=== PATIENT | female | born 1965 | race Caucasian/White ===

== ENCOUNTER 2017-06-27 18:04 | Emergency (ER) | payer MEDICAID ==
[~2017-06-27] VITALS: Ht 165.1 cm; Wt 104.0 kg
[2017-06-27 18:45] LABS: HEMATOCRIT 43.7 % (34.6-47.8); HEMOGLOBIN 14.4 g/dL (11.7-16.4); WHITE BLOOD COUNT 13.5 x10^3/uL (3.4-10)
[2017-06-27 18:56] LABS: BLOOD UREA NITROGEN 9 mg/dL (7-18)
[2017-06-27] MEDS ORDERED: MORPHINE SULFATE 4 MG/ML, 1ML IVPush PRN (19:00)
[2017-06-27] MEDS ORDERED: ONDANSETRON 2MG/ML, 2ML IVPush ONE (19:00)
[2017-06-27] MEDS ORDERED: ASPIRIN 81 MG TABLET CHEW PO ONE (19:00)
[2017-06-27] MEDS ORDERED: SODIUM CHLORIDE FLUSH 10ML SYR IVF ONE (19:00)
[2017-06-27 19:01] LABS: IS PT STATUS REG ER OR PRE ER? YES
[2017-06-27] MEDS ORDERED: ASPIRIN 81 MG TABLET CHEW ONE (19:41)
[2017-06-27] MEDS ORDERED: HYDROmorphone 1 MG/ML, 1ML ONE (19:41)
[2017-06-27 21:36] VITALS: BP 124/62
== END 2017-06-27 21:38 | disposition home or self-care (01) ==
LOC: ED 20:44
DX: S39.012A Strain of muscle, fascia and tendon of lower back, initial encounter (principal); I10 Essential (primary) hypertension; X50.1XXA Overexertion from prolonged static or awkward postures, initial encounter; Y99.8 Other external cause status; Y93.89 Activity, other specified; Y92.89 Other specified places as the place of occurrence of the external cause
CPT/HCPCS: 36415; 71010; 72110; 80048; 82040; 84484; 85025; 93005; 99285

== ENCOUNTER 2018-09-02 16:05 | Emergency (ER) | payer MEDICAID ==
[~2018-09-02] VITALS: Ht 165.1 cm; Wt 105.0 kg
[2018-09-02] MEDS ORDERED: ACETAMINOPHEN 500 MG TABLET PO ONE (16:30)
[2018-09-02] MEDS ORDERED: PLEASE ENTER HEIGHT AND WEIGHT MC SCH (16:30)
[2018-09-02] MEDS ORDERED: DEXAMETHASONE 4 MG TABLET PO ONE (16:30)
[2018-09-02] MEDS ORDERED: KETOROLAC 30 MG/1 ML IM ONE (17:00)
[2018-09-02 17:02] LABS: MEAN CORPUSCULAR HEMOGLOBIN 28.1 pg (27.0-34.8); MEAN CORPUSCULAR VOLUME 82.6 fL (80-100); MEAN PLATELET VOLUME 10.4 fL (7.4-10.4); PLATELET COUNT 212 x10^3/uL (130-400); RED BLOOD COUNT 5.57 x10^6/uL (3.82-5.3); RED CELL DISTRIBUTION WIDTH 14.3 % (9.6-15.2)
[2018-09-02] MEDS ORDERED: LINA145C PO (17:12)
[2018-09-02] MEDS ORDERED: LAMO200T2 PO (17:12)
[2018-09-02] MEDS ORDERED: LISI-420 PO (17:12)
[2018-09-02] MEDS ORDERED: IPRA12.9 INH (17:12)
[2018-09-02] MEDS ORDERED: ESOM40CA PO (17:12)
[2018-09-02] MEDS ORDERED: PREG200C PO (17:12)
[2018-09-02] MEDS ORDERED: ALBU6.7H INH (17:12)
[2018-09-02] MEDS ORDERED: ALPR0.5T6 PO (17:12)
[2018-09-02] MEDS ORDERED: METH500T7 PO (17:12)
[2018-09-02 17:13] LABS: ALANINE AMINOTRANSFERASE 42 U/L (12-78); ALBUMIN 3.4 g/dL (3.4-5.0); ANION GAP 12 mmol/L (5-15); CALCIUM 8.6 mg/dL (8.5-10.1); CHLORIDE 107 mmol/L (98-107); CREATININE 0.95 mg/dL (0.55-1.02)
[2018-09-02 17:15] LABS: ALKALINE PHOSPHATASE 101 U/L (45-117); BILIRUBIN,TOTAL 0.4 mg/dL (0.2-1.0); TOTAL PROTEIN 7.5 g/dL (6.4-8.2)
[2018-09-02 17:25] LABS: MD YES
[2018-09-02 17:29] LABS: BAND#(MANUAL) 0.37 x10^3/uL; BANDS%(MANUAL) 2 % (0-7); EOS#(MANUAL) 0.37 x10^3/uL (0.0-0.4); EOS% (MANUAL) 2 % (1-7); METAMYELOCYTES# (MANUAL) 0.19 x10^3/uL (0-0); METAMYELOCYTES% (MANUAL) 1 % (0-1); MONOS#(MANUAL) 0.93 x10^3/uL (0.3-2.7); MONOS% (MANUAL) 5 % (2-9); SEG#(MANUAL) 12.03 x10^3/uL (1.8-6.8); SEGS% (MANUAL) 65 % (42-75)
[2018-09-02 17:30] LABS: <PLATELET ESTIMATE> ADEQUATE; <PLT MORPHOLOGY> NORMAL PLT MORPH; <RBC MORPHOLOGY> NORMAL; LYMPH#(MANUAL) 4.44 x10^3/uL (1-3.4); LYMPHS% (MANUAL) 24 % (22-44); PMNS WITH VACUOLES 1+; REACTIVE LYMPHS # (MANUAL) 0.19 x10^3/uL (0-0); REACTIVE LYMPHS % (MANUAL) 1 % (0-0)
[2018-09-02 17:31] LABS: TOXIC GRAN 1+
[2018-09-02] MEDS ORDERED: KETOROLAC 30 MG/1 ML ONE (17:44)
[2018-09-02 17:52] VITALS: BP 156/103
[2018-09-02 17:58] LABS: MICROSCOPIC NOT IND
[2018-09-02 18:06] LABS: CULTURE INDICATED? NO
== END 2018-09-02 18:52 | disposition home or self-care (01) ==
LOC: ED 18:10
DX: D72.829 Elevated white blood cell count, unspecified (principal); I10 Essential (primary) hypertension; R53.1 Weakness; I25.2 Old myocardial infarction; Z79.899 Other long term (current) drug therapy; Z87.891 Personal history of nicotine dependence; Z88.2 Allergy status to sulfonamides; Z88.8 Allergy status to other drugs, medicaments and biological substances
CPT/HCPCS: 36415; 80053; 81003; 85025; 93005; 96372; 99285; J1885